=== PATIENT | female | born 1990 | race Caucasian/White ===

== ENCOUNTER 2020-01-27 17:14 | Emergency (ER) | payer BC, SELFPAY ==
[2020-01-27 17:25] VITALS: BP 126/65; PULSE 84; RESP 16; TEMP 36.3; O2SAT 98
--- NOTE | 2020-01-27 17:36 | ED.GENADULT ---
HPI - General Adult General Chief complaint: Eye Problems Stated complaint: redness left eye Time Seen by Provider: 01/27/20 17:36 Source: patient and RN notes reviewed Mode of arrival: ambulatory Limitations: no limitations History of Present Illness HPI narrative: 29-year-old female presents with complaints of left eye redness, crusting, irritation, and itching for the past day. No treatment. Huong says she noticed LT eye turning red and itching after walking outside yesterday. Awaken this morning with a left crusty eye. No matting. No pain. No copious drainage. Exacerbating factors is opening eye. Relieving factors is closing eyes. Huong says she suppose to wear glasses or contact lenses but does not. No blurred vision, double vision, sensation of foreign body, or pain of eye with movement. No URI symptoms. Huong denies being , LMP 3 weeks ago. Denies fever, chills, headaches, weakness, fatigue, myalgia, or facial swelling. Denies chest pain or dyspnea. Denies cough, rhinorrhea, congestion, sore throat, nausea, vomiting, abdominal pain, and diarrhea. Tolerating po intake well. Denies recent traveling. Denies concerns for COVID-19 or exposures been home since [id number] order except for essential household needs, working, and return home. Some parts of this dictation were generated by voice recognition software and may contain typographical and/or grammatical inaccuracies. Related Data Home Medications Medication Instructions Recorded Confirmed buspirone mg 01/27/20 lithium carbonate PO 01/27/20 naltrexone mg 01/27/20 topiramate 01/27/20 trazodone 01/27/20 ziprasidone HCl 01/27/20 Allergies Allergy/AdvReac Type Severity Reaction Status Date / Time No Known Allergies Allergy Verified 04/17/17 19:00 Review of Systems Review of Systems: Narrative: CONSTITUTIONAL: Denies fever, chills, sweats. EYES: Denies visual changes. Complains of LT eye redness, itching, crusting, and irritation. ENT: Denies rhinorrhea, congestion, sore throat, otalgia. CARDIOVASCULAR: Denies chest pain, palpitations, edema. RESPIRATORY: Denies dyspnea, wheezing, cough. GASTROINTESTINAL: Denies abdominal pain, nausea, vomiting, diarrhea. GENITOURINARY: Denies dysuria, hematuria, abnormal discharge. SKIN: Denies rash or itching. MUSCULOSKELETAL: Denies acute back pain, joint pain, or myalgia. NEUROLOGIC: Denies numbness or focal weakness. PSYCHIATRIC: Denies anxiety or depression. All systems reviewed & are unremarkable except as noted in HPI and below. [facility] Past Medical History Medical History Anxiety Bipolar disorder Surgical History Surgical History History of adenoidectomy History of tonsillectomy History of tympanostomy X2 bilateral Family History Family History Mother Alive and well Social History Social History Smoking packs per day: 0.45 Smoking cigarettes per day: 9.0 Years smoked: 8 Smoking pack-years: 3.60 Smoking status: Current every day smoker Tobacco type: cigarettes Second hand tobacco smoke exposure: Yes (mother) Alcohol intake: former Alcohol use details: sober for 10 months (01/27/20) per Huong Substance use: former Substance use type: marijuana and crack/cocaine Other substance usage details: cocaine sober since 2014 per Huong, marijuana last 09/2018 Last use: 2014 Living arrangements: with family Occupation/Education: occupation Gender identity (if verbalized by the patient): Female Comments At time of signature, agree with nurse past medical, surgical, social, and family history. There is no relevant family history pertinent to the presenting complaint. Exam Narrative: Exam Narrative: GENERA
== END 2020-01-27 17:58 | disposition home or self-care (01) ==
PROVIDERS: Emergency Provider Nurse Practitioner Family
DX: H10.9 Unspecified conjunctivitis (principal); F31.9 Bipolar disorder, unspecified; F41.9 Anxiety disorder, unspecified; F17.210 Nicotine dependence, cigarettes, uncomplicated
CPT/HCPCS: 99213; G0463

== ENCOUNTER 2020-06-28 09:33 | Emergency (ER) | payer BC, SELFPAY ==
--- NOTE | 2020-06-28 09:37 | ED.GENADULT ---
HPI - General Adult General Chief complaint: Upper Respiratory Infection Stated complaint: Cough Time Seen by Provider: 06/28/20 09:50 Source: patient Mode of arrival: ambulatory Limitations: no limitations History of Present Illness HPI narrative: 28-year-old female [facility] complaints of cough for the past couple of months. Patient states is been going on since the beginning of summer. Patient states that she is an active smoker. Patient denies taking anything for the cough since it has started. Patient denies any changes in the cough but stating that she just thought she come and get it checked out today. Patient denies any fevers, body aches or chills. Denies any ear pain. Denies any runny nose stuffy nose. Denies any chest pain or shortness of breath. Denies any abdominal pain, nausea, vomiting or diarrhea. Related Data Home Medications Medication Instructions Recorded Confirmed buspirone 15 mg PO BID 06/28/20 06/28/20 lithium carbonate 600 mg PO BID 06/28/20 06/28/20 trazodone 150 mg PO HS 06/28/20 06/28/20 ziprasidone HCl [Geodon] 1 mg PO DAILY 06/28/20 06/28/20 Allergies Allergy/AdvReac Type Severity Reaction Status Date / Time No Known Allergies Allergy Verified 06/28/20 09:51 Review of Systems Review of Systems: Narrative: CONSTITUTIONAL: Denies fever, chills, or sweats. EYES: Denies visual changes, redness, or discharge. ENT: Denies rhinorrhea, congestion, sore throat, or otalgia. CARDIOVASCULAR: Denies chest pain, palpitations, or edema. RESPIRATORY: Positive cough, denies dyspnea. GASTROINTESTINAL: Denies abdominal pain, nausea, vomiting, or diarrhea. GENITOURINARY: Denies dysuria or hematuria. SKIN: Denies rash or itching. MUSCULOSKELETAL: Denies back pain, joint pain, or myalgia. NEUROLOGIC: Denies headache, numbness, or weakness. PSYCHIATRIC: Denies anxiety or depression. [facility] Past Medical History Medical History (Updated 06/28/20 @ 09:57 by MARIA TERESA Angelo) Anxiety Bipolar disorder Fractures Right knee, right wrist, left wrist Surgical History Surgical History History of adenoidectomy History of tonsillectomy History of tympanostomy X2 bilateral Family History Family History Mother Alive and well Social History Social History Smoking packs per day: 0.45 Smoking cigarettes per day: 9.0 Years smoked: 8 Smoking pack-years: 3.60 Smoking status: Current every day smoker Tobacco type: cigarettes Second hand tobacco smoke exposure: Yes (mother) Alcohol intake: former Substance use: former Substance use type: marijuana and crack/cocaine Other substance usage details: cocaine sober since 2014 per Huong, marijuana last 09/2018 Last use: 2014 Gender identity (if verbalized by the patient): Female Comments At the time of my signature I agree with nursing past medical history, surgical, social, and family history. There is no relevant family history pertinent to the presenting complaint. Exam Narrative: Exam Narrative: GENERAL: Well-appearing, well-nourished, and in no acute distress. HEAD: Normocephalic, atraumatic. EYES: PERRLA and EOMI. ENT: Nares with erythema and edema noted bilaterally, no rhinorrhea or epistaxis. Mucous membranes moist. Posterior pharynx with no erythema, tonsil management, exudates or lesions present. Bilateral TMs are clear no erythema or foreign bodies to the canal. NECK: Supple. No lymphadenopathy CHEST: Clear to auscultation. No respiratory distress. Patient able talk in clear complete sentences. HEART: Regular rate and rhythm. No murmur heard. Normal peripheral pulses. ABDOMEN: Soft, nontender, nondistended, normal active bowel sounds. EXTREMITIES: Normal range of motion. No edema. SKIN: Warm, dry, no rash. NEURO: No focal de
[2020-06-28 09:43] VITALS: BP 128/82; PULSE 90; RESP 18; TEMP 37.3; O2SAT 100
== END 2020-06-28 10:00 | disposition home or self-care (01) ==
PROVIDERS: Emergency Provider Nurse Practitioner Family
DX: R05 Cough (principal); J30.9 Allergic rhinitis, unspecified; F17.210 Nicotine dependence, cigarettes, uncomplicated; F41.9 Anxiety disorder, unspecified; F31.9 Bipolar disorder, unspecified
CPT/HCPCS: 99213; G0463

== ENCOUNTER 2020-07-03 08:09 | Emergency (ER) | payer BC, SELFPAY ==
--- NOTE | ~2020-07-03 | XR_ITS ---
LUMBAR SPINE INDICATION: Low back pain TECHNIQUE: 3 views lumbar spine COMPARISON: None FINDINGS: No fracture, subluxation or dislocation. Mild levocurvature of the lumbar spine. No evidenc e for spondylolysis or spondylolisthesis. Vertebral bodies and disk spaces are preserved. Moderate c olonic fecal loading. IMPRESSION: 1: No acute abnormality of the lumbar spine identified. Reviewed, dictated and finalized at location [facility].
[2020-07-03 08:29] VITALS: BP 130/64; PULSE 89; RESP 16; TEMP 37.2; O2SAT 99
[2020-07-03 08:32] VITALS: BP 130/64; PULSE 89; RESP 16; TEMP 37.2; O2SAT 99
--- NOTE | 2020-07-03 08:49 | ED.BACK ---
HPI - Back Pain/Injury General Chief Complaint: Back Pain/Injury Stated Complaint: Severe back pain Time Seen by Provider: 07/03/20 08:35 Source: patient Limitations: no limitations History of Present Illness HPI Narrative: Rose Rivera is a 29 yo female with PMH of depression and anxiety who comes to express care complaining of right-sided back pain upper lumbar, that occurred about a week ago states she pulled something but is unsure of the exact mechanism but is tried taking [id number] pain medication and using heat without any relief of symptoms. He has no bladder or bowel incontinence Related Data Home Medications Medication Instructions Recorded Confirmed buspirone 15 mg PO BID 06/28/20 07/03/20 trazodone 150 mg PO HS 06/28/20 07/03/20 ziprasidone HCl [Geodon] 1 mg PO DAILY 06/28/20 07/03/20 lithium carbonate 600 mg PO QID 07/03/20 07/03/20 naltrexone 50 mg PO HS 07/03/20 07/03/20 Allergies Allergy/AdvReac Type Severity Reaction Status Date / Time No Known Allergies Allergy Verified 06/28/20 09:51 Review of Systems Review of Systems: Narrative: CONSTITUTIONAL: Denies fever, chills, sweats. EYES: Denies visual changes, redness, discharge. ENT: Denies rhinorrhea, congestion, sore throat, otalgia. CARDIOVASCULAR: Denies chest pain, palpitations, edema. RESPIRATORY: Denies dyspnea, wheezing, cough GASTROINTESTINAL: Denies abdominal pain, nausea, vomiting, diarrhea. GENITOURINARY: Denies dysuria, hematuria, abnormal discharge SKIN: Denies rash or itching. NEUROLOGIC: Denies numbness, or focal weakness. PSYCHIATRIC: Denies anxiety or depression. His back pain on right side upper lumbar area, PMFSH Past Medical History Medical History Anxiety Bipolar disorder Fractures Right knee, right wrist, left wrist Surgical History Surgical History History of adenoidectomy History of tonsillectomy History of tympanostomy X2 bilateral Family History Family History Mother Alive and well Other Diabetes mellitus Heart disease Social History Social History Smoking packs per day: 0.45 Smoking cigarettes per day: 9.0 Years smoked: 8 Smoking pack-years: 3.60 Smoking status: Current every day smoker Tobacco type: cigarettes Second hand tobacco smoke exposure: Yes (mother) Alcohol intake: former Substance use: former Substance use type: marijuana and crack/cocaine Other substance usage details: cocaine sober since 2014 per Huong, marijuana last 09/2018 Last use: 2014 Gender identity (if verbalized by the patient): Female Comments At time of signature, I agree with nursing past medical, surgical, social and family history. There is no relevant family history pertinent to the presenting complaint. Exam Narrative: Exam Narrative: GENERAL: This is a well-nourished, well-developed patient, in mild distress. HEAD: normocephalic, atraumatic. EYESSclera clear/white. Vision is grossly intact. EARS: External ears normal, . Hearing grossly intact. NOSE: External nose normal without nasal discharge, nares without redness, no rhinorrhea. THROAT: Mucous membranes moist, posterior pharynx NECK: Neck supple, CARDIOVASCULAR: Regular rate and rhythm without murmurs, gallops, or rubs. RESPIRATORY: Diminished to auscultation. Breath sounds equal bilaterally. Mild wheezes, rales, or rhonchi. GASTROINTESTINAL: Abdomen soft, SKIN: warm, intact with no suspicious lesions or rash, good texture and turgor. NEURO: awake, alert, and oriented to person, place and time. There were no obvious focal neurologic abnormalities. Steady gait EXTREMITIES: Normal range of motion. BACK: tender without deformity; mild tenderness to touch on right, no bladder or bowel incontinence C
== END 2020-07-03 09:14 | disposition home or self-care (01) ==
PROVIDERS: Emergency Provider Nurse Practitioner
DX: S39.012A Strain of muscle, fascia and tendon of lower back, initial encounter (principal); X58.XXXA Exposure to other specified factors, initial encounter; F31.9 Bipolar disorder, unspecified; F41.9 Anxiety disorder, unspecified
CPT/HCPCS: 72100; 99213; G0463

== ENCOUNTER 2020-07-04 13:30 | Emergency (ER) | payer BC, SELFPAY ==
--- NOTE | ~2020-07-04 | CT_ITS ---
EXAMINATION: CT abdomen pelvis wo con DATE: 07/04/2020 15:08 INDICATION: Right flank pain radiating to groin TECHNIQUE: Computed tomography (CT) of the abdomen and pelvis was performed without intravenous contr ast. Automated exposure control and iterative reconstruction technique were employed. Exam dose: 121 1.18 mGy-cm total exam DLP. COMPARISON: None. FINDINGS: The lung bases are clear. Heart size is within normal limits. No pericardial or pleural eff usion. The liver, gallbladder, bile ducts, spleen, pancreas, pancreatic duct, and adrenal glands and kidneys are unremarkable. No urinary tract calculus or hydroureteronephrosis. Normal caliber of the abdominal aorta. No intraperitoneal or retroperitoneal or pelvic mass lesion or adenopathy or ascites. The urinary bladder, uterus and adnexal areas are unremarkable. Normal appendix. No bowel obstruction, bowel wall thickening, pneumatosis or intraperitoneal free air. Included skeletal structures are unremarkable. IMPRESSION: Normal appendix No urinary tract calculus or hydroureteronephrosis Reviewed, dictated and finalized at [facility]. Reviewed, dictated and finalized at location [facility].
[2020-07-04 13:37] VITALS: BP 152/102; PULSE 113; RESP 18; TEMP 36.3; O2SAT 98
[2020-07-04 14:13] LABS: Basophils Absolute Auto 0.1 K/mm3 (0.0-0.1); Basophils Percent Auto 0.3 % (0.2-1.2); Eosinophils Percent Auto 0.1 % (0-4.4); Hematocrit 41.3 % (37.0-47.0); Hemoglobin 13.8 g/dL (12.0-15.0); Immature Granulocyte Absolute 0.17 K/mm3 (0.00-0.031); Immature Granulocyte Percent A 1.1 % (0-0.5); Lymphocytes Absolute Auto 1.87 K/mm3 (0.9-3.2); Lymphocytes Percent Auto 11.8 % (18.3-44.2); Mean Corpuscular HGB Conc 33.4 g/dl (32-36); Mean Corpuscular Volume 95.8 fl (80-100); Mean Platelet Volume 9.3 fl (7.4-10.4); Monocytes Absolute Auto 0.7 K/mm3 (0.1-0.6); Monocytes Percent Auto 4.2 % (2.6-8.5); Neutrophils Absolute Auto 13.1 K/mm3 (1.3-6.7); Neutrophils Percent Auto 82.5 % (45.5-73.1); Platelet Count Result 458 k/mm3 (150-375); Red Blood Count 4.31 M/mm3 (4.2-5.4); Red Cell Distribution Width 12.6 % (11.5-14.5); White Blood Count 15.9 K/mm3 (4.5-10.0)
[2020-07-04 14:23] LABS: Add Urine Microscopic? YES; Appearance Urine Clear (Clear); Bacteria Urine Trace /hpf; Bilirubin Urine Negative (Negative); Blood Urine Negative (Negative); Color Urine Straw (Yellow); Glucose Urine UA Negative (Negative); Ketones Urine Negative (Negative); Leukocyte Esterase Ur 1+ LEU/UL (Negative); Nitrate Urine Negative (Negative); Protein Urine Negative (Negative); RBC Urine 0-2 /hpf (0-2); Specific Grav Ur 1.011 (1.001-1.035); Squamous Epithelial Cell Urine Moderate /hpf (Few); Urobilinogen Urine Negative mg/dL (<2.0)
[2020-07-04 14:30] LABS: Anion Gap 8 mmol/L (8-16); Blood Urea Nitrogen 12 mg/dL (7-17); Calcium 8.9 mg/dL (8.4-10.2); Carbon Dioxide 22 mmol/L (22-30); Chloride 103 mmol/L (98-107); Estimated CRCL calculation 146 ml/min; Estimated Glomerular Filt Rate > 60; Glucose 115 mg/dL (65-105); Sodium 133 mmol/L (137-145)
--- NOTE | 2020-07-04 14:51 | ED.ABDPAIN ---
HPI - Abdominal Pain General Chief Complaint: Abdominal Pain Stated Complaint: sharp, excrutiating pain in right lower back Time Seen by Provider: 07/04/20 14:00 Source: patient Mode of arrival: ambulatory Limitations: no limitations History of Present Illness HPI narrative: This is a 29-year-old female that presents the emergency department for right-sided back pain x2 days. No known injury or trauma. Reports the pain is sharp in nature. It is worse with movement. She was seen for this yesterday at urgent care and diagnosed with a muscle strain. She was started on muscle relaxer and steroid with little relief. Reports urinary frequency. Denies fever, nausea, vomiting, dysuria or hematuria. Related Data Home Medications Medication Instructions Recorded Confirmed buspirone 15 mg PO BID 06/28/20 07/03/20 trazodone 150 mg PO HS 06/28/20 07/03/20 ziprasidone HCl [Geodon] 1 mg PO DAILY 06/28/20 07/03/20 lithium carbonate 600 mg PO QID 07/03/20 07/03/20 naltrexone 50 mg PO HS 07/03/20 07/03/20 Allergies Allergy/AdvReac Type Severity Reaction Status Date / Time No Known Allergies Allergy Verified 07/04/20 13:40 Review of Systems Review of Systems: Narrative: CONSTITUTIONAL: Denies fever GASTROINTESTINAL: Denies abdominal pain, nausea, vomiting GENITOURINARY: Denies dysuria or hematuria. MUSCULOSKELETAL: Reports back pain, joint pain, and myalgia. NEUROLOGIC: Denies numbness, or weakness. All systems reviewed & are unremarkable except as noted in HPI and below PMFSH Past Medical History Medical History Anxiety Bipolar disorder Fractures Right knee, right wrist, left wrist Surgical History Surgical History History of adenoidectomy History of tonsillectomy History of tympanostomy X2 bilateral Family History Family History Mother Alive and well Other Diabetes mellitus Heart disease Social History Social History Smoking packs per day: 0.45 Smoking cigarettes per day: 9.0 Years smoked: 8 Smoking pack-years: 3.60 Smoking status: Current every day smoker Tobacco type: cigarettes Second hand tobacco smoke exposure: Yes (mother) Alcohol intake: former Substance use: former Substance use type: marijuana and crack/cocaine Other substance usage details: cocaine sober since 2014 per Huong marijuana last 09/2018 Last use: 2014 Gender identity (if verbalized by the patient): Female Exam Narrative: Exam Narrative: GENERAL: Well-appearing, well-nourished, and in no acute distress. HEAD: Normocephalic, atraumatic. EYES: EOMI. CHEST: Clear to auscultation. No respiratory distress. No wheezes rales or rhonchi HEART: Regular rate and rhythm. No murmur heard. Normal peripheral pulses. ABDOMEN: Soft, nontender, nondistended, normal active bowel sounds. No CVA tenderness BACK: No midline spinal tenderness EXTREMITIES: Normal range of motion. No edema. SKIN: Warm, dry, no rash. NEURO: No focal deficits. Alert and oriented x3. PSYCH: Normal mood and affect Course Vital Signs Vital signs: Vital Signs Temperature 97.3 F L 07/04/20 13:37 Pulse Rate 113 H 07/04/20 13:37 Respiratory Rate 18 07/04/20 13:37 Blood Pressure 152/102 H 07/04/20 13:37 Pulse Oximetry 98 07/04/20 13:37 Temperature 97.3 F L 07/04/20 13:37 Pulse Rate 113 H 07/04/20 13:37 Respiratory Rate 18 07/04/20 13:37 Blood Pressure 152/102 H 07/04/20 13:37 Pulse Oximetry 98 07/04/20 13:37 MDM - Abdominal Pain Lab Data Result diagrams: 07/04/20 14:07 07/04/20 14:07 Labs: Lab Results 07/04/20 07/04/20 07/04/20 Range/Units 14:07 14:07 14:11 WBC 15.9 H (4.5-10.0) K/mm3 RBC 4.31 (4.2-5.4) M/mm3 Hgb 13.8 (12.0-15.0) g/dL
--- NOTE | 2020-07-04 14:53 | ED.ABDPAIN ---
HPI - Abdominal Pain General Chief Complaint: Abdominal Pain Stated Complaint: sharp, excrutiating pain in right lower back Time Seen by Provider: 07/04/20 14:00 Source: patient Mode of arrival: ambulatory Limitations: no limitations History of Present Illness HPI narrative: This is a 29 year old female that presents to the ER for right-sided low back pain x2 days. No known injury or trauma. Reports the pain is sharp in nature. Worse with movement and relieved with rest. Reports she was seen in urgent care for this yesterday and prescribed a steroid and muscle relaxer with little relief. Also reports urinary frequency. Denies fever, nausea, vomiting, dysuria, or hematuria. Related Data Home Medications Medication Instructions Recorded Confirmed buspirone 15 mg PO BID 06/28/20 07/03/20 trazodone 150 mg PO HS 06/28/20 07/03/20 ziprasidone HCl [Geodon] 1 mg PO DAILY 06/28/20 07/03/20 lithium carbonate 600 mg PO QID 07/03/20 07/03/20 naltrexone 50 mg PO HS 07/03/20 07/03/20 Allergies Allergy/AdvReac Type Severity Reaction Status Date / Time No Known Allergies Allergy Verified 07/04/20 13:40 Review of Systems Review of Systems: Narrative: CONSTITUTIONAL: Denies fever GASTROINTESTINAL: Denies abdominal pain, nausea, vomiting GENITOURINARY: Denies dysuria or hematuria. MUSCULOSKELETAL: Reports back pain, joint pain, and myalgia. NEUROLOGIC: Denies numbness, or weakness. All systems reviewed & are unremarkable except as noted in HPI and below PMFSH Past Medical History Medical History Anxiety Bipolar disorder Fractures Right knee, right wrist, left wrist Surgical History Surgical History History of adenoidectomy History of tonsillectomy History of tympanostomy X2 bilateral Family History Family History Mother Alive and well Other Diabetes mellitus Heart disease Social History Social History Smoking packs per day: 0.45 Smoking cigarettes per day: 9.0 Years smoked: 8 Smoking pack-years: 3.60 Smoking status: Current every day smoker Tobacco type: cigarettes Second hand tobacco smoke exposure: Yes (mother) Alcohol intake: former Substance use: former Substance use type: marijuana and crack/cocaine Other substance usage details: cocaine sober since 2014 per Huong marijuana last 09/2018 Last use: 2014 Gender identity (if verbalized by the patient): Female Exam Narrative: Exam Narrative: GENERAL: Well-appearing, obese, and in no acute distress. HEAD: Normocephalic, atraumatic. EYES: EOMI. CHEST: Clear to auscultation. No respiratory distress. No wheezes rales or rhonchi HEART: Regular rate and rhythm. No murmur heard. Normal peripheral pulses. ABDOMEN: Soft, nontender, nondistended, normal active bowel sounds. No CVA tenderness BACK: No midline spinal tenderness EXTREMITIES: Normal range of motion. No edema. SKIN: Warm, dry, no rash. NEURO: No focal deficits. Alert and oriented x3. PSYCH: Normal mood and affect Course Vital Signs Vital signs: Vital Signs Temperature 97.3 F L 07/04/20 13:37 Pulse Rate 113 H 07/04/20 13:37 Respiratory Rate 18 07/04/20 13:37 Blood Pressure 152/102 H 07/04/20 13:37 Pulse Oximetry 98 07/04/20 13:37 Temperature 97.3 F L 07/04/20 13:37 Pulse Rate 113 H 07/04/20 13:37 Respiratory Rate 18 07/04/20 13:37 Blood Pressure 152/102 H 07/04/20 13:37 Pulse Oximetry 98 07/04/20 13:37 MDM - Abdominal Pain MDM Narrative Medical decision making narrative: Patient presents to the emergency department for right-sided mid back pain. No known injury or trauma. She is afebrile and nontoxic-appearing. Patient is neurologically intact. CBC with leukocytosis to 15.9. Patient is currently on oral abril
[2020-07-04] MEDS: SODIUM CHLORIDE 0.9% IV 1,000 ML 999 ML IV CONT (15:25)
[2020-07-04] MEDS: KETOROLAC 30 MG/ML VIAL (*BKC) IV PUSH (16:13)
[2020-07-04 16:55] VITALS: BP 135/73; PULSE 70; RESP 20; O2SAT 99
== END 2020-07-04 17:00 | disposition home or self-care (01) ==
PROVIDERS: Emergency Provider Family Medicine
DX: M54.5 Low back pain (principal); F41.9 Anxiety disorder, unspecified; F31.9 Bipolar disorder, unspecified; F17.210 Nicotine dependence, cigarettes, uncomplicated; R82.998 Other abnormal findings in urine
CPT/HCPCS: 36415; 74176; 80048; 81001; 81025; 85025; 87086; 96361; 96374; 99284; J1885; J7030

== ENCOUNTER 2021-06-22 08:31 | Emergency (ER) | payer BC, SELFPAY ==
[2021-06-22 08:42] VITALS: BP 129/85; PULSE 92; RESP 16; TEMP 37.2; O2SAT 99
--- NOTE | 2021-06-22 09:36 | ED.GENADULT ---
HPI - General Adult General Chief complaint: Upper Respiratory Infection Stated complaint: loss of voice Source: patient Mode of arrival: ambulatory Limitations: no limitations History of Present Illness HPI narrative: Patient is a 30-year-old female who presents to the urgent care via POV for evaluation of hoarseness that began 2 days ago. She denies associated signs and symptoms. Denies taking OTC meds for symptoms. Nothing improves or worsen symptoms. Related Data Home Medications Medication Instructions Recorded Confirmed buspirone 15 mg PO BID 06/28/20 07/03/20 trazodone 150 mg PO HS 06/28/20 07/03/20 ziprasidone HCl [Geodon] 1 mg PO DAILY 06/28/20 07/03/20 lithium carbonate 600 mg PO QID 07/03/20 07/03/20 naltrexone 50 mg PO HS 07/03/20 07/03/20 Allergies Allergy/AdvReac Type Severity Reaction Status Date / Time No Known Allergies Allergy Verified 07/04/20 13:40 Review of Systems Review of Systems: Denies history of COPD, bronchitis, asthma, and pneumonia. Pertinent negatives: Pain, fever, sweats, chills, change in appetite, fatigue, skin color changes, headache, nasal congestion/discharge, dizziness, lymphadenopathy, sinus problems, ear pain/drainage, chest pain, heart murmurs, heart palpitations, shortness of breath, wheezing, cyanosis, hemoptysis, hoarseness, orthopnea, pleuritic pain, nausea, vomiting, diarrhea, and myalgias. PMF Past Medical History Medical History Anxiety Bipolar disorder Fractures Right knee, right wrist, left wrist Surgical History Surgical History History of adenoidectomy History of tonsillectomy History of tympanostomy X2 bilateral Family History Family History Mother Alive and well Other Diabetes mellitus Heart disease Social History Social History Smoking packs per day: 0.45 Smoking cigarettes per day: 9.0 Years smoked: 8 Smoking pack-years: 3.60 Smoking status: Current every day smoker Tobacco type: cigarettes Second hand tobacco smoke exposure: Yes (mother) Alcohol intake: former Alcohol use details: 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 There is no relevant family history pertinent to the presenting complaint. Exam Narrative: GENERAL: Well-appearing, well-nourished, and in no acute distress. HEAD: Normocephalic, atraumatic. No sinus tenderness or facial swelling appreciated. EYES: PERRLA and EOMI. No evidence of erythema, swelling, or drainage. ENT: Bilateral external ears and ear canals normal. Bilateral TMs are normal.No TM perforation. Nares clear, no rhinorrhea or epistaxis. Bilateral turbinates without erythema/ swelling. Mucous membranes moist and pink. Uvula is midline without erythema and swelling. No evidence of petechial rash, cobblestoning, lesions, ulcers, erythema, swelling, exudates, peritonsillar abscess, tenting, or drooling. Breath odor and voice is hoarse. NECK: Supple. No Lymphadenopathy or nuchal rigidity appreciated. CHEST: Bilateral lung silva are clear to auscultation. No respiratory distress. No evidence of cough or pleuritic cp upon examination. HEART: Regular rate and rhythm. No murmur, gallop, or rub heard. EXTREMITIES: Normal range of motion. No edema. SKIN: Warm, dry, no rash. NEURO: No focal deficits. Alert and oriented x3. Course Vital Signs Vital signs: Vital Signs Temperature 98.9 F
== END 2021-06-22 09:52 | disposition home or self-care (01) ==
PROVIDERS: Emergency Provider Nurse Practitioner Family
DX: J04.0 Acute laryngitis (principal); F17.210 Nicotine dependence, cigarettes, uncomplicated; F31.9 Bipolar disorder, unspecified; F41.9 Anxiety disorder, unspecified
CPT/HCPCS: 99213; G0463

== ENCOUNTER 2021-09-15 08:02 | Emergency (ER) | payer BC, SELFPAY ==
--- NOTE | 2021-09-15 08:10 | ED.URI ---
HPI - URI/Sore Throat General Chief Complaint: Upper Respiratory Infection Stated Complaint: cold sx Source: patient and RN notes reviewed Mode of arrival: ambulatory History of Present Illness HPI Narrative: This is a 30-year-old female who presented with complaints of congestion, headache, runny nose and a cough. This started on Sunday patient did take a at home Covid test on Sunday which was negative. I explained to the patient that it may be inaccurate due to the timing we will send her for PCR. She also is a heavy smoker and complains of shortness of breath we will give her albuterol inhaler to treat shortness of breath. The patient denies, CP, palpitation, extremity numbness, lightheadedness, dizziness, constipation, diarrhea, chills, or fever. Related Data Home Medications Medication Instructions Recorded Confirmed trazodone 150 mg PO HS 06/28/20 06/22/21 ziprasidone HCl [Geodon] 1 mg PO DAILY 06/28/20 06/22/21 lithium carbonate 600 mg PO QID 07/03/20 06/22/21 naltrexone 50 mg PO HS 07/03/20 06/22/21 Allergies Allergy/AdvReac Type Severity Reaction Status Date / Time No Known Allergies Allergy Verified 09/15/21 08:20 Review of Systems Review of Systems: A 14 organ system Review of Systems was performed and pertinent positives included in the HPI, otherwise remaining ROS is negative. [facility] Past Medical History Medical History Anxiety Bipolar disorder Fractures Right knee, right wrist, left wrist Surgical History Surgical History History of adenoidectomy History of tonsillectomy History of tympanostomy X2 bilateral Family History Family History Mother Alive and well Other Diabetes mellitus Heart disease Social History Social History Smoking packs per day: 0.45 Smoking cigarettes per day: 9.0 Years smoked: 8 Smoking pack-years: 3.60 Smoking status: Current every day smoker Tobacco type: cigarettes Second hand tobacco smoke exposure: Yes (mother) Alcohol intake: former Alcohol use details: sober for 10 months (01/27/20) per [facility] Substance use: former Substance use type: marijuana and crack/cocaine Other substance usage details: cocaine sober since 2014 per [facility]ong, marijuana last 09/2018 Last use: 2014 Gender identity (if verbalized by the patient): Female Exam Narrative: GENERAL: This is a well-nourished, well-developed patient, in no apparent distress. HEAD: normocephalic, atraumatic. EYES: PERRL. Sclera clear/white. Vision is grossly intact. EARS: External ears normal, auditory canals clear and without drainage, TMs normal without perforation. Hearing grossly intact. NOSE: External nose normal with no obvious nasal discharge, nares without redness, no rhinorrhea. THROAT: Mucous membranes moist, posterior pharynx clear. NECK: Neck supple, non-tender without lymphadenopathy, masses or thyromegaly. CARDIOVASCULAR: Regular rate and rhythm without murmurs, gallops, or rubs. RESPIRATORY: Clear to auscultation. Breath sounds equal bilaterally. No wheezes, rales, or rhonchi. GASTROINTESTINAL: Abdomen soft, non-tender, nondistended. Bowel sounds are active. No hepato-splenomegaly, or palpable masses. No guarding. SKIN: warm, intact with no suspicious lesions or rash, good texture and turgor. NEURO: awake, alert, and oriented to person, place and time. There were no obvious focal neurologic abnormalities. Steady gait EXTREMITIES: Normal range of motion. No edema. No calf tenderness. Negative Homans sign bilaterally. BACK: Nontender without deformity or crepitance. No flank tenderness. MDM - URI/Sore Throat Differential Diagnosis Differential diagnosis: Likely upper respiratory infection, sinusitis, viral infection and pharyngitis
[2021-09-15 08:12] VITALS: BP 143/97; PULSE 92; RESP 16; TEMP 37.1; O2SAT 99
== END 2021-09-15 08:35 | disposition home or self-care (01) ==
PROVIDERS: Emergency Provider Nurse Practitioner
DX: B34.9 Viral infection, unspecified (principal); F31.9 Bipolar disorder, unspecified; F41.9 Anxiety disorder, unspecified; F17.210 Nicotine dependence, cigarettes, uncomplicated; Z20.822 Contact with and (suspected) exposure to COVID-19
CPT/HCPCS: 99211; C9803; G0463; U0003; U0005

== ENCOUNTER → 2021-09-15 09:47 | Outpatient (CLI) | payer BC, SELFPAY ==
[2021-09-15 19:47] LABS: SARS-CoV-2 RNA PCR Negative
== END ==
PROVIDERS: Visit Provider Nurse Practitioner
DX: Z20.822 Contact with and (suspected) exposure to COVID-19 (principal)
CPT/HCPCS: C9803; U0003; U0005

== ENCOUNTER 2022-01-19 08:12 | Emergency (ER) | payer OTHER, BC, SELFPAY ==
--- NOTE | ~2022-01-19 | XR_ITS ---
EXAMINATION: XR wrist RT min 3V DATE: 01/19/2022 08:59 INDICATION: Right wrist pain. TECHNIQUE: 4 views of right wrist were obtained. COMPARISON: None. FINDINGS: Bone alignment is normal. No fracture. Joint spaces are well maintained. IMPRESSION: 1. Normal right wrist. Reviewed, dictated and finalized at location A. IMPRESSION: 1. Normal right wrist.
[2022-01-19 08:28] VITALS: BP 126/93; PULSE 87; RESP 16; TEMP 36.4; O2SAT 99
--- NOTE | 2022-01-19 08:39 | ED.UPPEXIN ---
HPI - Extremity Injury (Upper) General Chief Complaint: Extremity Injury, Upper Stated Complaint: right wrist Time Seen by Provider: 01/19/22 08:39 Source: patient Mode of arrival: ambulatory Limitations: no limitations History of Present Illness HPI narrative: 31-year-old female presents with complaint of pain to right wrist for 2 days. 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 States that she had to pull open several boxes closed with tape. The next day she had pain and swelling to her right wrist, swelling worsened over 2-day period. She has not informed her work regarding this injury. She states that she is here on her own to find out what is going on and will file paperwork later if she needs to. All systems reviewed and negative except as noted above. Related Data Home Medications Medication Instructions Recorded Confirmed trazodone 150 mg PO HS 06/28/20 09/15/21 ziprasidone HCl [Geodon] 1 mg PO DAILY 06/28/20 09/15/21 lithium carbonate 600 mg PO QID 07/03/20 09/15/21 Allergies Allergy/AdvReac Type Severity Reaction Status Date / Time No Known Allergies Allergy Verified 01/19/22 08:49 Review of Systems Review of Systems: CONSTITUTIONAL: Denies fever, chills, or sweats. EYES: Denies visual changes, redness, or discharge. ENT: Denies rhinorrhea, congestion, sore throat, or otalgia. CARDIOVASCULAR: Denies chest pain, palpitations, or edema. RESPIRATORY: Denies cough or dyspnea. GASTROINTESTINAL: Denies abdominal pain, nausea, vomiting, or diarrhea. GENITOURINARY: Denies dysuria or hematuria. SKIN: Denies rash or itching. MUSCULOSKELETAL: Reports right wrist pain and swelling. NEUROLOGIC: Denies headache, numbness, or weakness. PSYCHIATRIC: Denies anxiety or depression. All other systems reviewed are negative, except as documented in HPI. [facility] Past Medical History Medical History Anxiety Bipolar disorder Fractures Right knee, right wrist, left wrist Surgical History Surgical History History of adenoidectomy History of tonsillectomy History of tympanostomy X2 bilateral Family History Family History Mother Alive and well Other Diabetes mellitus Heart disease Social History Social History Smoking packs per day: 0.45 Smoking cigarettes per day: 9.0 Years smoked: 8 Smoking pack-years: 3.60 Smoking status: Current every day smoker Tobacco type: cigarettes Second hand tobacco smoke exposure: Yes (mother) Alcohol intake: former Alcohol use details: sober for 10 months (01/27/20) per [facility]ong Substance use: former Substance use type: marijuana and crack/cocaine Other substance usage details: cocaine sober since 2014 per [facility]ong, marijuana last 09/2018 Last use: 2014 Gender identity (if verbalized by the patient): Female Comments At time of signature, agree with nursing past medical, surgical, social and family history. There is no relevant family history pertinent to the presenting complaint. Exam Narrative: GENERAL: This is a well-nourished, well-developed patient, in no apparent distress. HEAD: normocephalic, atraumatic. EYES: PERRL. Sclera clear/white. Vision is grossly intact. EARS: External ears normal NOSE: External nose normal THROAT: Mucous membranes moist NECK: Neck supple, non-tender without lymphadenopathy, masses or thyromegaly. CARDIOVASCULAR: Regular rate and rhythm without murmurs, gallops, or rubs. RESPIRATORY: Clear to auscultation. Breath sounds equal bilaterally. No wheezes, rales, or rhonchi. SKIN: warm, Dry, intact with no suspicious lesions or rash, good texture a
== END 2022-01-19 09:20 | disposition home or self-care (01) ==
PROVIDERS: Emergency Provider Nurse Practitioner Family
DX: M77.8 Other enthesopathies, not elsewhere classified (principal); F17.210 Nicotine dependence, cigarettes, uncomplicated; F41.9 Anxiety disorder, unspecified; F31.9 Bipolar disorder, unspecified
CPT/HCPCS: 73110; 99213; G0463

== ENCOUNTER 2022-01-25 21:55 | Emergency (ER) | payer BC, SELFPAY ==
--- NOTE | ~2022-01-25 | XR_ITS ---
EXAMINATION: XR ankle RT min 3V DATE: 01/25/2022 23:07 INDICATION: Lateral right ankle pain and swelling post injury TECHNIQUE: Anteroposterior, oblique, mortise, and lateral views of the right ankle were obtained. COMPARISON: None. FINDINGS: Alignment is normal. No acute fracture. Unchanged small ossicle near the tip the lateral malleolus li filomena sequela of old trauma either heterotopic ossification related to medial ankle sprain or chronic nonunited avulsion fracture fragment. Joint spaces are normal. Prominent soft tissue swelling about t he lateral malleolus. IMPRESSION: 1. No acute osseous abnormality. Reviewed, dictated and finalized at location A.
[2022-01-25 22:22] VITALS: BP 151/90; PULSE 86; RESP 16; TEMP 36.2; O2SAT 100
--- NOTE | 2022-01-25 22:50 | ED.PSYCH ---
HPI - Psych General Chief Complaint: Psychiatric Symptoms <Solange Hutchins MD - Last Filed: 01/26/22 02:35> Stated Complaint: right ankle pain <Solange Hutchins MD - Last Filed: 01/26/22 02:35> Time Seen by Provider: 01/25/22 22:50 <Solange Hutchins MD - Last Filed: 01/26/22 02:35> Source: patient <Solange Hutchins MD - Last Filed: 01/26/22 02:35> Mode of arrival: ambulatory <Solange Hutchins MD - Last Filed: 01/26/22 02:35> Limitations: no limitations <Solange Hutchins MD - Last Filed: 01/26/22 02:35> History of Present Illness HPI Narrative: The patient is a 31-year-old female with a history of anxiety, bipolar disorder, alcohol abuse, presenting to the emergency department for evaluation of right ankle pain. Patient reports that she was leaving work when she stepped off of a ledge, and felt an immediate popping sensation in her right ankle with all of her weight transferring to the right ankle. Patient states she was able to stand and ambulate with difficulty and significant pain. She reports swelling on the outside of the right ankle and pain with movement. Patient denies any head trauma, chest trauma, knee pain. She denies any focal weakness or numbness. Patient denies history of injuring this ankle in the past. Of note, patient endorses suicidality as well when questioned by nursing staff as well as by myself. She is endorsing suicidal ideation with plan to take all of her medications, drink over a liter of alcohol and attempt to . Patient reports history of suicide attempt in the past but denies history of hospitalization. She does take lithium, Geodon and has been compliant with her medication without any recent change doses. Patient states she has been feeling suicidal for over a week. She states that she has been sober for 14 days from alcohol. She denies history of alcohol withdrawal seizures. <Solange Hutchins MD - Last Filed: 01/26/22 02:35> Related Data Home Medications: Home Medications Medication Instructions Recorded Confirmed trazodone 150 mg PO HS 06/28/20 01/25/22 ziprasidone HCl [Geodon] 80 mg PO DAILY 06/28/20 01/25/22 lithium carbonate 1,200 mg PO HS 07/03/20 01/25/22 <Solange Hutchins MD - Last Filed: 01/26/22 02:35> Allergies/Adverse Reactions: Allergies Allergy/AdvReac Type Severity Reaction Status Date / Time No Known Allergies Allergy Verified 01/25/22 22:26 <Solange Hutchins MD - Last Filed: 01/26/22 02:35> Review of Systems Review of Systems: CONSTITUTIONAL: Denies fever, chills, or sweats. EYES: Denies visual changes, redness, or discharge. ENT: Denies rhinorrhea, congestion, sore throat, or otalgia. CARDIOVASCULAR: Denies chest pain, palpitations, or edema. RESPIRATORY: Denies cough or dyspnea. GASTROINTESTINAL: Denies abdominal pain, nausea, vomiting, or diarrhea. GENITOURINARY: Denies dysuria or hematuria. SKIN: Denies rash or itching. MUSCULOSKELETAL: Denies back pain, reports right ankle pain and swelling NEUROLOGIC: Denies headache, numbness, or weakness. PSYCHIATRIC: Reports depression, reports suicidality with plan <Solange Hutchins MD - Last Filed: 01/26/22 02:35> [facility] Past Medical History Medical History: Medical History Anxiety Bipolar disorder Fractures Right knee, right wrist, left wrist <Solange Hutchins MD - Last Filed: 01/26/22 02:35> Surgical History Surgical History: Surgical History History of adenoidectomy History of tonsillectomy History of tympanostomy X2 bilateral <Solange Hutchins MD - Last Filed: 01/26/22 02:35> Family History Family History: Family History Mother Alive and well Other Diabetes mellitus Heart disease <Solange Hutchins MD - Last Filed: 01/26/22 02:35> Social History
[2022-01-25 23:06] LABS: Basophils Absolute Auto 0.1 K/mm3 (0.0-0.1); Basophils Percent Auto 0.4 % (0.2-1.2); Eosinophils Absolute Auto 0.1 K/mm3 (0-0.3); Hematocrit 43.2 % (37.0-47.0); Hemoglobin 14.1 g/dL (12.0-15.0); Immature Granulocyte Absolute 0.05 K/mm3 (0.00-0.031); Immature Granulocyte Percent A 0.4 % (0-0.5); Lymphocytes Absolute Auto 2.46 K/mm3 (0.9-3.2); Mean Corpuscular HGB Conc 32.6 g/dl (32-36); Mean Corpuscular Hemoglobin 32.3 pg (26-34); Mean Corpuscular Volume 99.1 fl (80-100); Mean Platelet Volume 8.6 fl (7.4-10.4); Monocytes Absolute Auto 0.7 K/mm3 (0.1-0.6); Monocytes Percent Auto 5.5 % (2.6-8.5); Neutrophils Absolute Auto 8.4 K/mm3 (1.3-6.7); Neutrophils Percent Auto 71.7 % (45.5-73.1); Platelet Count Result 551 k/mm3 (150-375); Red Blood Count 4.36 M/mm3 (4.2-5.4); Red Cell Distribution Width 12.7 % (11.5-14.5); White Blood Count 11.7 K/mm3 (4.5-10.0)
[2022-01-25 23:20] LABS: Alanine Aminotransferase 28 U/L (4-35); Albumin Level 4.8 g/dL (3.5-5.1); Alkaline Phosphatase 52 U/L (38-126); Anion Gap 8 mmol/L (8-16); Aspartate Amino Transferase 30 U/L (14-36); Bilirubin,Total 0.3 mg/dL (0.2-1.3); Blood Urea Nitrogen 14 mg/dL (7-17); Calcium 8.9 mg/dL (8.4-10.2); Carbon Dioxide 21 mmol/L (22-30); Chloride 104 mmol/L (98-107); Estimated CRCL calculation 99 ml/min; Estimated Glomerular Filt Rate > 60; Glucose 117 mg/dL (65-110); Potassium 3.7 mmol/L (3.4-5.0); Sodium 133 mmol/L (137-145)
[2022-01-25 23:45] LABS: Ethanol < 10 mg/dL (<10)
[2022-01-25] MEDS: oxyCODONE/ACETAMINOPHEN (*CRX) 5-325 MG TABLET 1 TABLET PO (23:51)
[2022-01-25 23:52] LABS: Appearance Urine Clear (Clear); Bilirubin Urine Negative (Negative); Color Urine Yellow (Yellow); Glucose Urine UA Negative (Negative); Ketones Urine Negative (Negative); Leukocyte Esterase Ur Negative LEU/UL (Negative); Nitrate Urine Negative (Negative); Protein Urine Negative (Negative); Urobilinogen Urine 0.2 mg/dL (<2.0)
[2022-01-25 23:57] LABS: Mucus Urine Rare /lpf; RBC Urine 0-2 /hpf (0-2); Squamous Epithelial Cell Urine Rare /hpf (Few); WBC Urine 0-3 /hpf
[2022-01-25 23:58] LABS: Add Urine Microscopic? YES; Blood Urine Trace (Negative)
[2022-01-26 00:06] LABS: Amphetamine Screen Urine Negative (Negative); Barbiturate Screen Urine Negative (Negative); Benzodiazepines Screen Urine Negative (Negative); Cannabinoid Screen Urine Negative (Negative); Cocaine Screen Urine Negative (Negative); Methadone Screen Urine Negative (Negative); Opiate Screen Urine Negative (Negative); Phencyclidine Screen Urine Negative (Negative)
[2022-01-26 01:43] LABS: Lithium 0.5 mmol/L (0.6-1.2)
[2022-01-26] MEDS: oxyCODONE/ACETAMINOPHEN (*CRX) 5-325 MG TABLET 1 TABLET PO (02:27)
[2022-01-26 03:32] LABS: SARS-CoV-2 RNA PCR Negative
--- NOTE | 2022-01-26 06:33 | PC.NURSE ---
PT has been accepted by [facility]. Awaiting room number.
[2022-01-26] MEDS: ACETAMINOPHEN 500 MG TABLET 1000 MG PO (09:35)
--- NOTE | 2022-01-26 09:52 | PC.NURSE ---
crisis inform this story writer that the pt was accepted by dr patton, at [facility]. continue to wait bed assigment
[2022-01-26 13:59] VITALS: BP 136/84; PULSE 88; RESP 16; O2SAT 98
[2022-01-26] MEDS: IBUPROFEN 400 MG TABLET 800 MG PO (16:28)
[2022-01-26] MEDS: NICOTINE (*PBKC) 14 MG PATCH 1 PATCH (18:07)
--- NOTE | 2022-01-26 18:07 | PC.NURSE ---
NIC FOR NICOTINE PATCH 14 MG PRIOR TO LEAVING TO [place] FROM DR FONTANEZ
== END 2022-01-26 17:30 ==
PROVIDERS: Emergency Provider Emergency Medicine
DX: S93.401A Sprain of unspecified ligament of right ankle, initial encounter (principal); R45.851 Suicidal ideations; F41.9 Anxiety disorder, unspecified; F31.9 Bipolar disorder, unspecified; F17.210 Nicotine dependence, cigarettes, uncomplicated; Z20.822 Contact with and (suspected) exposure to COVID-19; X50.9XXA Other and unspecified overexertion or strenuous movements or postures, initial encounter
CPT/HCPCS: 36415; 73610; 80053; 80178; 80307; 81001; 81025; 84443; 85025; 99285; A9270; C9803; U0003; U0005

== ENCOUNTER 2024-01-18 15:52 | Emergency (ER) | payer MEDICAID, SELFPAY ==
--- NOTE | ~2024-01-18 | XR_ITS ---
EXAMINATION: XR ankle RT min 3V DATE: 01/18/2024 16:41 INDICATION: Right ankle pain and swelling post twisting injury one week prior TECHNIQUE: Anteroposterior, oblique, mortise, and lateral views of the right ankle were obtained. 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 Additional unchanged tiny ossific density near the lateral process of the talus with same differential. Alignment is normal. No acute fractures ofzia ntified. Joint spaces are normal with no ankle joint effusion. Small plantar calcaneal spur. There is diffuse soft tissue swelling about the ankle, both medially and laterally as well as extending over the dorsum of the foot. IMPRESSION: 1. No acute osseous abnormality. Reviewed, dictated and finalized at location A.
--- NOTE | 2024-01-18 16:52 | ED.LOWEXIN ---
HPI - Extremity Injury (Lower) General Chief Complaint: Extremity Injury, Lower Stated Complaint: Right Ankle Pain Time Seen by Provider: 01/18/24 16:52 Source: patient Mode of arrival: ambulatory Limitations: no limitations History of Present Illness HPI Narrative: 33 yo F presents with c/o pain, swelling and bruising to R ankle for 1 wk. slipped off side of sidewalk and rolled her ankle. States she has been trying to rest and elevate. Last night went out with some friends and now swelling worse. 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 Wants to make sure no fracture. All systems reviewed and negative except as noted above. Related Data Home Medications Medication Instructions Recorded Confirmed trazodone 150 mg tablet 150 mg PO HS 06/28/20 01/18/24 ziprasidone HCl 80 mg capsule 80 mg PO DAILY 06/28/20 01/18/24 (Geodon) lithium carbonate 300 mg 1,200 mg PO HS 07/03/20 01/18/24 tablet,extended release aripiprazole 15 mg tablet 15 mg PO HS 01/18/24 01/18/24 lamotrigine 100 mg tablet 200 mg PO BID 01/18/24 01/18/24 propranolol 10 mg tablet 10 mg PO TID 01/18/24 01/18/24 terbinafine HCl 250 mg tablet 250 mg PO DAILY 01/18/24 01/18/24 Allergies Allergy/AdvReac Type Severity Reaction Status Date / Time No Known Allergies Allergy Verified 01/18/24 15:55 Review of Systems Review of Systems: CONSTITUTIONAL: Denies fever, chills, or sweats. EYES: Denies visual changes, redness, or discharge. ENT: Denies rhinorrhea, congestion, sore throat, or otalgia. CARDIOVASCULAR: Denies chest pain, palpitations, or edema. RESPIRATORY: Denies cough or dyspnea. GASTROINTESTINAL: Denies abdominal pain, nausea, vomiting, or diarrhea. GENITOURINARY: Denies dysuria or hematuria. SKIN: Denies rash or itching. MUSCULOSKELETAL: Denies back pain . Reports right ankle pain and swelling. NEUROLOGIC: Denies headache, numbness, or weakness. PSYCHIATRIC: Denies anxiety or depression. All other systems reviewed are negative, except as documented in HPI. [facility] Past Medical History Medical History Anxiety Bipolar disorder Fractures Right knee, right wrist, left wrist Surgical History Surgical History History of adenoidectomy History of tonsillectomy History of tympanostomy X2 bilateral Family History Family History Mother Alive and well Other Diabetes mellitus Heart disease Social History Social History Smoking packs per day: 0.45 Smoking cigarettes per day: 9.0 Years smoked: 8 Smoking pack-years: 3.60 Smoking status: Current every day smoker Tobacco type: cigarettes Second hand tobacco smoke exposure: Yes (mother) Alcohol intake: former Alcohol use details: sober for 10 months (01/27/20) per [facility] Substance use: former Substance use type: marijuana Other substance usage details: cocaine sober since 2014 per [facility], marijuana last 09/2018 Last use: 2014 Living arrangements: with family Occupation/Education: occupation Gender identity (if verbalized by the patient): Female Comments At time of signature, agree with nursing past medical, surgical, social and family history. There is no relevant family history pertinent to the presenting complaint. Exam Narrative: GENERAL: This is a well-nourished, well-developed patient, in no apparent distress. HEAD: normocephalic, atraumatic. EYES: PERRL. Sclera clear/white. Vision is grossly intact. EARS: External ears normal NOSE: External nose normal NECK: Neck supple, non-tender without lymphadenopathy, masses or thyromegaly. CARDIOVASCULAR: Regular rate and rhythm without murmurs, gallops, or rubs. RESPIRATORY: Clear to auscultation. Breath sounds equal bilaterally. No wheezes, rales, or rhonchi. SKIN: w
== END 2024-01-18 17:15 | disposition home or self-care (01) ==
PROVIDERS: Emergency Provider Nurse Practitioner Family
DX: S93.401A Sprain of unspecified ligament of right ankle, initial encounter (principal); X50.9XXA Other and unspecified overexertion or strenuous movements or postures, initial encounter; F31.9 Bipolar disorder, unspecified; F17.210 Nicotine dependence, cigarettes, uncomplicated
CPT/HCPCS: 73610; 99213; G0463

== ENCOUNTER 2024-02-22 18:26 | Emergency (ER) | payer OTHER, MEDICAID, SELFPAY ==
[2024-02-22 18:39] VITALS: BP 138/100; PULSE 87; RESP 16; TEMP 37; O2SAT 98
--- NOTE | 2024-02-22 18:39 | ED.GENADULT ---
HPI - General Adult General Chief complaint: Unspecified Stated complaint: medication refill Time Seen by Provider: 02/22/24 18:32 Source: patient Mode of arrival: ambulatory Limitations: no limitations History of Present Illness HPI narrative: Patient is a 33-year-old female transitioning to male with pronouns he him that presents for request of refill of testosterone gel. [facility]. Patient lost to of testosterone and is now 1 month short for refills. Patient [facility] that he did not [facility] due to needing to pay over 200 dollars up front. Patient called last week to try to get a refill and was told they needed to look at lab work and could not refill it without an appointment. Patient was told at that time it would be 2 weeks before appointment. Patient declined to make appointment. Patient states he is now completely out of testosterone gel and is making him manic. Related Data Home Medications Medication Instructions Recorded Confirmed trazodone 150 mg tablet 150 mg PO HS 06/28/20 01/18/24 ziprasidone HCl 80 mg capsule 80 mg PO DAILY 06/28/20 01/18/24 (Geodon) lithium carbonate 300 mg 1,200 mg PO HS 07/03/20 01/18/24 tablet,extended release aripiprazole 15 mg tablet 15 mg PO HS 01/18/24 01/18/24 lamotrigine 100 mg tablet 200 mg PO BID 01/18/24 01/18/24 propranolol 10 mg tablet 10 mg PO TID 01/18/24 01/18/24 terbinafine HCl 250 mg tablet 250 mg PO DAILY 01/18/24 01/18/24 Allergies Allergy/AdvReac Type Severity Reaction Status Date / Time No Known Allergies Allergy Verified 01/18/24 15:55 Review of Systems Review of Systems: All systems reviewed & are unremarkable except as noted in HPI and below Constitutional: Constitutional: Denies body ache(s), Denies chills, Denies fatigue, Denies fever(s), Denies headache(s), Denies malaise and Denies weakness Eyes: Eyes: Denies blurry vision, Denies irritation and Denies loss of vision ENT: Denies otalgia, Denies headache(s), Denies nasal discharge, Denies sinus pain and Denies sore throat Cardiovascular: Cardiovascular: Denies chest pain, Denies irregular heart rhythm and Denies dyspnea Respiratory: Respiratory: Denies dyspnea Gastrointestinal: Gastrointestinal: Denies abdominal pain, Denies melena, Denies hematochezia, Denies diarrhea, Denies nausea and Denies vomiting Musculoskeletal: Musculoskeletal: Denies back pain, Denies myalgias and Denies arthralgias Integumentary/Breasts: Skin/Breast: Denies pruritus and Denies rash Neurologic: Denies headache(s), Denies loss of vision and Denies weakness Psychiatric: Psychiatric: Reports no additional psychiatric complaints Endocrine: Endocrine: Denies fatigue PMFSH Past Medical History Medical History Anxiety Bipolar disorder Fractures Right knee, right wrist, left wrist Surgical History Surgical History History of adenoidectomy History of tonsillectomy History of tympanostomy X2 bilateral Family History Family History Mother Alive and well Other Diabetes mellitus Heart disease Social History Social History Smoking packs per day: 0.45 Smoking cigarettes per day: 9.0 Years smoked: 8 Smoking pack-years: 3.60 Smoking status: Current every day smoker Tobacco type: cigarettes Second hand tobacco smoke exposure: Yes (mother) Alcohol intake: former Alcohol use details: sober for 10 months (01/27/20) [facility] Substance use: former Substance use type: marijuana Other substance usage details: cocaine sober since 2014 kindra [facility]ja marijuana last 09/2018 Last use: 2014 Living arrangements: with family Occupation/Education: oc
== END 2024-02-22 19:24 | disposition home or self-care (01) ==
PROVIDERS: Emergency Provider Nurse Practitioner Family
DX: Z76.0 Encounter for issue of repeat prescription (principal); F17.210 Nicotine dependence, cigarettes, uncomplicated; F31.9 Bipolar disorder, unspecified
CPT/HCPCS: 99211; G0463

== ENCOUNTER 2024-10-25 09:56 | Emergency (ER) | payer OTHER, SELFPAY ==
--- NOTE | 2024-10-25 10:29 | ED.URI ---
HPI - URI/Sore Throat General Chief Complaint: Upper Respiratory Infection Stated Complaint: Sore Throat/Headache Time Seen by Provider: 10/25/24 10:29 Source: patient Mode of arrival: ambulatory Limitations: no limitations History of Present Illness HPI Narrative: 33-year-old transgender patient presented for complaint of cough, sore throat, and body aches. Onset yesterday. Endorses exposure to someone sick at work the day prior to symptom onset. Patient endorses smoking history, and states the cough is worse than the baseline cough. Related Data Home Medications ?Medication ?Instructions ?Recorded ?Confirmed ?Last Taken ?Type lithium carbonate 300 mg 1,200 mg PO HS 07/03/20 02/22/24 Unknown History tablet,extended release testosterone See Rx Instructions .Route .COMPLEX 02/22/24 02/22/24 Unknown History naltrexone 50 mg tablet mg 10/25/24 Unknown History propranolol 20 mg tablet mg 10/25/24 Unknown History ziprasidone HCl 40 mg capsule mg PO 10/25/24 Unknown History Allergies Allergy/AdvReac Type Severity Reaction Status Date / Time No Known Allergies Allergy Verified 10/25/24 10:21 Review of Systems Review of Systems: CONSTITUTIONAL: reports body aches, denies fever, chills, or sweats. EYES: Denies visual changes, redness, or discharge. ENT: reports rhinorrhea, congestion, sore throat, CARDIOVASCULAR: Denies chest pain, palpitations, or edema. RESPIRATORY: Reports cough, denies sob, wheezing. GASTROINTESTINAL: Denies abdominal pain, nausea, vomiting, or diarrhea. NEUROLOGIC: reports headache All systems reviewed & are unremarkable except as noted in HPI and below PMFSH Past Medical History Medical History Fractures Right knee, right wrist, left wrist Bipolar disorder Anxiety Surgical History Surgical History History of tympanostomy X2 bilateral History of adenoidectomy History of tonsillectomy Family History Family History Mother Alive and well Other Diabetes mellitus Heart disease Social History Social History Smoking packs per day: 0.45 Smoking cigarettes per day: 9.0 Years smoked: 8 Smoking pack-years: 3.60 Smoking status: Current every day smoker Tobacco type: cigarettes Second hand tobacco smoke exposure: Yes (mother) Alcohol intake: former 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 Please see nursing chart for further information. There is no relevant family history pertinent to the presenting complaint Exam Narrative: GENERAL: Well-appearing, in no acute distress. EYES: EOMI. No redness or drainage. Conjunctivae normal. ENT: Mucous membranes pink and moist. congestion and rhinorrhea. TMs normal bilaterally. Throat normal. Uvula midline. NECK: Normal AROM. CHEST: No respiratory distress. scattered Wheezing to all silva. HEART: Regular rate and rhythm. No murmur appreciated. SKIN: Warm, dry, no rash. Capillary refill normal. Normal skin turgor. NEURO: Alert and oriented x3. Gait steady. PSYCH: Normal affect. Course Course Emergency Course: Patient is aware of diagnosis, understands and agrees to treatment plan. Anticipatory guidance given. Patient agrees to follow-up as directed and is aware of reasons to seek care at the emergency department. Portions of this record may have been created with voice recognition software Level of Care: Express Care Visit MDM - URI/Sore Throat MDM Narrative Medical decision making narrative: negative flu, COVID, and strep. Discussed physical exam findings. Advised supportive measures and signs/symptoms to go to the ER. Pt is appropriate for outpt treatment and f/u. Differential Diagnosis Differential diagnosis: Likely upper respiratory infection, sinusitis, viral infection, bronchitis, influenza and pharyngitis Discharge Plan Discharge Clinical Impression: Viral infection Patient Disposition: Home, Self-Care Condition: Stable Instructions: Antibiotic Form, Acute Bronchitis (ED) Additional Instructions: Rapid strep swab was negative today You will be notified in a few days if the culture comes back positive for strep, and appropriate antibiotics will be called in at that time. if symptoms are due to a viral illness, it is not treated with antibiotics. Viral symptoms can be present for up to 10-14 days. Your rapid covid And flu tests were negative today. It may be too early to detect the virus, therefore we recommend retesting at home in 1-2 days Continue to follow general precautions: frequent handwashing, wear a mask, isolate/social distance, and avoid crowds if you have a fever. You must be fever free for 24 hours without the use of fever reducing medication (Tylenol/ibuprofen) before returning to work/school/crowds. Flonase spray and Zyrtec (or Claritin/Huyen) over the counter Cough syrup may cause drowsiness; avoid driving or take it at night time. Tylenol 1000mg every 8 hours as needed for pain Symptomatic treatment includes: rest, fluids, and increase humidity of the air at home. Recommend smoking cessation and avoiding triggers take the steroid as directed Follow up with your primary care provider Go to the ER for worsening symptoms or concerns. Patient Language: Mohawk Prescriptions: New methylprednisolone [Medrol (Kristian)] 4 mg tablets,dose pack See Rx Instructions .ROUTE .COMPLEX Qty: 21 0RF Rx Instructions: orally per package directions benzonatate 200 mg capsule 200 mg PO TID PRN (Reason: cough) Qty: 20 0RF No Action testosterone 20.25 mg/1.25 gram (1.62 %) gel in metered-dose pump See Rx Instructions .ROUTE .COMPLEX Rx Instructions: Rx lithium carbonate 300 mg tablet extended release 1,200 mg PO HS ziprasidone HCl 40 mg capsule PO propranolol 20 mg tablet naltrexone 50 mg tablet Follow-up/Referrals: [facility] [Primary Care Provider] - Stand Alone Forms: Work/School Release IP
[2024-10-25 10:40] LABS: EDCOVIDSCREEN Negative (Negative); EDINFLUASCREEN Negative (Negative); EDINFLUBSCREEN Negative (Negative); EDSTREPNEGPOS1 Negative (Negative)
== END 2024-10-25 10:53 | disposition home or self-care (01) ==
PROVIDERS: Emergency Provider Nurse Practitioner Family
DX: B34.9 Viral infection, unspecified (principal); Z20.822 Contact with and (suspected) exposure to COVID-19; F17.210 Nicotine dependence, cigarettes, uncomplicated; F31.9 Bipolar disorder, unspecified
CPT/HCPCS: 87081; 87426; 87804; 87880; 99213; G0463

== ENCOUNTER 2025-04-06 11:46 | Emergency (ER) | payer SELFPAY ==
--- NOTE | 2025-04-06 11:52 | ED.GENADULT ---
HPI - General Adult General Chief complaint: Skin/Abscess/Foreign Body Stated complaint: Rash Time Seen by Provider: 04/06/25 11:52 Source: patient Mode of arrival: ambulatory Limitations: no limitations History of Present Illness HPI narrative: 34-year-old female transitioning to male presented for complaint of a rash to the right forearm. Onset 1 week. Says it is spreading on the forearm into the left arm since onset. Endorses itching. Has Not taken anything for symptoms. Says she has been outside, 'but the rash is not poison joanna.' Pt suspects the rash is related to brushing her arm against an unhoused person's towel while at the gym sauna.Says the rash started about 5 minutes later. Denies lip, tongue, or throat swelling, shortness of breath. Denies n/v. Denies changes to soap, detergent, lotion, or any other exposures. No one else in the house or any contacts with similar symptoms. Related Data Home Medications ?Medication ?Instructions ?Recorded ?Confirmed ?Last Taken ?Type lithium carbonate 300 mg 1,200 mg PO HS 07/03/20 02/22/24 Unknown History tablet,extended release propranolol 20 mg tablet 20 mg 10/25/24 Unknown History ziprasidone HCl 40 mg capsule mg PO 10/25/24 Unknown History disulfiram 250 mg tablet mg 04/06/25 Unknown History naltrexone 50 mg tablet mg 04/06/25 Unknown History testosterone cypionate 200 mg/mL 200 mg 04/06/25 Unknown History intramuscular oil Allergies Allergy/AdvReac Type Severity Reaction Status Date / Time No Known Allergies Allergy Verified 04/06/25 11:58 Review of Systems Review of Systems: CONSTITUTIONAL: Denies body aches, fever, chills, or sweats. EYES: Denies visual changes, redness, or discharge. ENT: Denies rhinorrhea, congestion CARDIOVASCULAR: Denies chest pain, palpitations, or edema. RESPIRATORY: Denies cough or dyspnea. GASTROINTESTINAL: Denies abdominal pain, nausea, vomiting, or diarrhea. SKIN: per HPI MUSCULOSKELETAL: Denies back pain, joint pain, or myalgia. NEUROLOGIC: Denies headache, numbness, tingling, or weakness. [facility] Past Medical History Medical History Fractures Right knee, right wrist, left wrist Bipolar disorder Anxiety Surgical History Surgical History History of tympanostomy X2 bilateral History of adenoidectomy History of tonsillectomy Family History Family History Mother Alive and well Other Diabetes mellitus Heart disease Social History Social History Smoking packs per day: 0.45 Smoking cigarettes per day: 9.0 Years smoked: 8 Smoking pack-years: 3.60 Smoking status: Current every day smoker Tobacco type: cigarettes Second hand tobacco smoke exposure: Yes (mother) Alcohol intake: former 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 Please see nursing chart for further information. There is no relevant family history pertinent to the presenting complaint Exam Narrative: GENERAL: Well-appearing EYES: conjunctivae clear, and EOMI. ENT: Mucous membranes moist. Oropharynx without edema, erythema or lesions. NECK: Supple. No lymphadenopathy CHEST: wheezing noted, pt admits to chronic wheezing from smoking HEART: Regular rate and rhythm. SKIN: Warm, dry. right forearm with scattered irregular erythematous patches with dried vesicles, no active drainage, nontender. One patch noted to left forearm. NEURO: Alert and oriented x3. Course Course Emergency Course: Patient is aware of diagnosis, understands and agrees to treatment plan. Anticipatory guidance given. Patient agrees to follow-up as directed and is aware of reasons to seek care at the emergency department. Portions of this record may have been created with voice recognition software Level of Care: Express Care Visit Vital Signs Vital signs: Reviewed Medical Decision Making MDM Narrative Medical decision making narrative: Discussed physical exam findings c/w contact dermatitis to arms. Reviewed RX with pt. Advised supportive measures and signs/symptoms to go to the ER. Pt is appropriate for outpt treatment and f/u. Differential Diagnosis Differential Diagnosis: Viral exanthema, contact dermatitis, allergic dermatitis, eczema, urticaria, insect bites, impetigo, tinea, folliculitis Discharge Plan Discharge Clinical Impression: Dermatitis Patient Disposition: Home Condition: Stable Instructions: Antibiotic Form, Contact Dermatitis (ED) Additional Instructions: Take steroids as directed. Benadryl every 8 hours as needed for itching (or Zyrtec) according to package directions You can apply calamine lotion, Benadryl cream, hydrocortisone or Joanna dry as needed for itching Cool compresses to the sites of itching, avoid hot water. Avoid scratching to reduce the risk of infection Follow up with your primary care provider as needed in 1 week Go to the ER for worsening symptoms or concerns (lip, tongue, throat swelling/itching, trouble breathing etc) Patient Language: Slovenian Prescriptions: New prednisone 20 mg tablet 20 mg PO DAILY Qty: 12 0RF Rx Instructions: take 3 tablets daily for 2 days, then 2 tablets daily for 2 days then 1 tablet daily for 2 days No Action testosterone cypionate 200 mg/mL oil 200 mg naltrexone 50 mg tablet disulfiram 250 mg tablet lithium carbonate 300 mg tablet extended release 1,200 mg PO HS ziprasidone HCl 40 mg capsule PO propranolol 20 mg tablet 20 mg Follow-up/Referrals: PHYSICIAN,DRUG ENFORCEMENT ADMINISTRATION AGENT [Primary Care Provider] - Time of Disposition: 12:05
[2025-04-06 11:54] VITALS: BP 159/104; PULSE 91; RESP 18; TEMP 36.8; O2SAT 98
== END 2025-04-06 12:12 | disposition home or self-care (01) ==
PROVIDERS: Emergency Provider Nurse Practitioner Family
DX: L30.9 Dermatitis, unspecified (principal); F17.210 Nicotine dependence, cigarettes, uncomplicated; F31.9 Bipolar disorder, unspecified
CPT/HCPCS: 99213; G0463